=== PATIENT | female | born 1960 | race Two or more races ===

== ENCOUNTER 2016-12-10 17:33 | Emergency (ER) | payer OTHER ==
[~2016-12-10] VITALS: Ht 149.9 cm; Wt 72.6 kg
--- NOTE | 2016-12-10 17:33 | NUR ---
Patient [facility], triaged by RN and evaluated by Dr. Ratliff. Waiting for an available bed.
[2016-12-10 17:39] VITALS: BP 144/86
--- NOTE | 2016-12-10 17:39 | NUR ---
Patient ambulated to bed 8. 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
[2016-12-10] MEDS ORDERED: SIMV40TA1 PO (17:46)
--- NOTE | 2016-12-10 17:46 | NUR ---
X-Ray at bedside.
--- NOTE | 2016-12-10 17:58 | NUR ---
56/F biba from work s/p racking falling onto her right toes. Pt ambulatory with steady gait. No active bleeding. Pt was at work when someone started acting out and was pushing racks over. VSS.
[2016-12-10 18:49] VITALS: BP 144/86
--- NOTE | 2016-12-10 18:50 | NUR ---
Patient discharged with v/s stable. Written and verbal after care instructions given and explained. Patient alert, oriented and verbalized understanding of instructions. Ambulatory with steady gait. All questions addressed prior to discharge. ID band removed. Patient advised to follow up with PMD. Rx of TYLENOL WITH CODEINE given. Patient educated on indication of medication including possible reaction and side effects. Opportunity to ask questions provided and answered.
== END 2016-12-10 18:50 | disposition home or self-care (01) ==
LOC: MED 17:33
DX: S97.122A Crushing injury of left lesser toe(s), initial encounter (principal); E78.00 Pure hypercholesterolemia, unspecified; Z88.0 Allergy status to penicillin; W20.8XXA Other cause of strike by thrown, projected or falling object, initial encounter; Y93.89 Activity, other specified; Y92.69 Other specified industrial and construction area as the place of occurrence of the external cause; Y99.8 Other external cause status
CPT/HCPCS: 73630; 90471; 90715; 99284; Q0092